=== PATIENT | female | born 1990 | race Caucasian/White ===

== ENCOUNTER 2024-05-17 08:48 | Outpatient (CLI) | payer BC, SELFPAY | END 2024-05-17 08:49 | disposition home or self-care (01) | LOC: NFLDREF 05-21 06:54 | PROVIDERS: Visit Provider Obstetrics & Gynecology | DX: Z34.83 Encounter for supervision of other normal pregnancy, third trimester (principal); E06.3 Autoimmune thyroiditis | CPT/HCPCS: 84443; 86592 ==

== ENCOUNTER 2024-06-29 09:00 | Outpatient (CLI) | payer BC, SELFPAY | END 2024-06-29 09:01 | disposition home or self-care (01) | LOC: NFLDREF 06-30 14:41 | PROVIDERS: Visit Provider Advanced Practice Midwife | DX: Z34.81 Encounter for supervision of other normal pregnancy, first trimester (principal) | CPT/HCPCS: 87081; 87653 ==

== ENCOUNTER 2024-07-01 19:15 | Outpatient (CLI) | payer BC, SELFPAY ==
[2024-07-01 19:36] VITALS: BP 113/58; PULSE 79
--- NOTE | 2024-07-01 20:21 | PM.OBLDTN ---
OB - Triage/Final Diagnosis Visit Information Time Seen by Provider: 20:15 Date Seen: 07/01/24 Date of evaluation: 07/01/24 Narrative: Jazmyn is a 34 year old 2 para 1 at 36.2 weeks gestation by LMP, who presents with concerns for vaginal bleeding. She states that sometime today she had enough blood on her pad to fill it front to back. It was brown old looking blood when she noticed it. She states that she has incontinence so is unaware of when it happened as she assumed she was leaking urine until she looked at her pad. She denies leaking fluid and is appreciating good movement. She is tracing contractions on the monitor but only feels them as cramping that is much more mild then what she had earlier this week on Thursday. Her abdomen is soft on palpation. She denies signs of labor and declines further monitoring and cervical recheck for labor. We discussed possible causes for this bleeding including cervical change. She did have a cervical exam in the clinic on Thursday. She denies any further bleeding. On cervical exam she was still 1.5cm and there was no signs of any type of bleeding at that time. Reviewed precautions for bleeding and when to be reevaluated. Questions answered. She has not yet returned her TOLAC consent form but is desiring a TOLAC. She states that she plans to return in at her next visit. Encouraged her to bring it if she comes in before her next appointment. Evaluation Cervical dilation (cm): 1 Vital signs: Vital Signs - 24 hr 07/01/24 19:36 Pulse Rate 79 Blood Pressure 113/58 L Fetus (Single) Heart Rate Baseline: 140 Shelter Variability: Moderate (6-25) Monitor Accelerations: Present Monitor Decelerations: None
--- NOTE | 2024-07-01 20:32 | PC.OBNST ---
NST Note NST Note Start: 07/01/24 19:24 Freq: ONCE Status: Complete Protocol: Document 07/01/24 20:29 FRANK (Rec: 07/01/24 20:31 FRANK [id number]) NST Note 2 Para (# of births) 1 EDC 07/27/24 Gestational Age In Weeks & Days 36 Weeks & 2 Days Patient Presented with Complaint(s) of Vaginal bleeding Reactive Yes Appropriate for Gestational Age Yes HUANG Beard RNC Date 07/01/24 Reactive Yes Appropriate for Gestational Age Yes HUANG Sanchez RN Date 07/01/24 OB NST charge Yes Complete NST Note via Write Note Yes The provider's electronic signature indicates the NST is reactive/appropriate for gestational age. *Note to provider: If an addendum is required, open the patient's chart and click on the note under the Nurse/Allied Health tab.
== END 2024-07-01 20:25 | disposition home or self-care (01) ==
LOC: OB OUT 19:15 → OB 19:15
PROVIDERS: Visit Provider Advanced Practice Midwife
DX: O46.93 Antepartum hemorrhage, unspecified, third trimester (principal); Z3A.36 36 weeks gestation of pregnancy
CPT/HCPCS: 59025; G0463